=== PATIENT | male | born 1990 | race Caucasian/White ===

== ENCOUNTER 2022-07-15 05:56 | Emergency (ER) | payer OTHER ==
[~2022-07-15] VITALS: Ht 170.2 cm; Wt 89.8 kg
[2022-07-15] MEDS ORDERED: MEDROLPACK PO (07:48)
[2022-07-15] MEDS ORDERED: KETO10TA2 PO (07:48)
== END 2022-07-15 08:03 | disposition home or self-care (01) ==
LOC: ER 05:56
DX: S42.001A Fracture of unspecified part of right clavicle, initial encounter for closed fracture (principal); M25.511 Pain in right shoulder; W18.30XA Fall on same level, unspecified, initial encounter; Y93.9 Activity, unspecified; Y92.9 Unspecified place or not applicable; Y99.9 Unspecified external cause status